=== PATIENT | female | born 1985 | race Caucasian/White ===

== ENCOUNTER 2019-02-06 13:11 | Inpatient (IN) | payer OTHER ==
[~2019-02-06] VITALS: Ht 165.1 cm; Wt 108.9 kg
[2019-02-07] MEDS ORDERED: OXYTOCIN/0.9 % SODIUM CHLORIDE 1,000 ML IV SCH (00:14)
[2019-02-07] MEDS ORDERED: LR 1,000 ML IV ONE (00:14)
[2019-02-07] MEDS ORDERED: LR 500 ML IV ONE ×2 (00:14→06:04)
[2019-02-07] MEDS ORDERED: TERBUTALINE SULFATE 1 MG/ML VIAL SUBCUT ONE (00:15)
[2019-02-07] MEDS ORDERED: NALBUPHINE HCL 10 MG/ML AMP IVP PRN (00:15)
[2019-02-07] MEDS: LR 1,000 ML IV SCH ×2 (00:45→06:59)
[2019-02-07 01:00] VITALS: BP_SYST 120
[2019-02-07 01:15] LABS: WHITE BLOOD COUNT (AUTO) 6.9 K/uL (4.8-10.8)
[2019-02-07 01:16] LABS: HEMATOCRIT 35.4 % (36-48); HEMOGLOBIN 12.3 g/dL (12.0-16.0); MEAN CORPUSCULAR HEMOGLOBIN 29 pg (27-31); MEAN CORPUSCULAR HGB CONC 35 % (32-36); MEAN CORPUSCULAR VOLUME 84 fL (79.0-98.0); MONOCYTES % (AUTO) 7.4 % (1.7-9.3); NEUTROPHILS % (AUTO) 61.8 % (40.0-70.0); PLATELET COUNT (AUTO) 162 K/uL (130-430); RED BLOOD CELL COUNT(AUTO) 4.23 MIL/uL (4.2-6.2); RED CELL DISTRIBUTION WIDTH 13.6 % (9.0-15.0)
[2019-02-07 01:17] LABS: BASOPHILS % (AUTO) 0.3 % (0.0-2.0); EOSINOPHILS # (AUTO) 0.1 K/uL (0.0-0.4); EOSINOPHILS % (AUTO) 1.5 % (0.0-4.0); MONOCYTES # (AUTO) 0.5 K/uL (0.0-1.0); NEUTROPHILS # (AUTO) 4.3 K/uL (1.8-7.7)
[2019-02-07] MEDS ORDERED: OXYTOCIN 10 UNIT/ML VIAL IM ONE ×2 (01:30→19:30)
[2019-02-07] MEDS ORDERED: fentaNYL CITRATE/PF 100 MCG/2 ML AMP ONE ×2 (05:49→13:48)
[2019-02-07] MEDS ORDERED: ROPIVACAINE HCL/PF 0.2% 100 ML ONE ×2 (05:50→13:48)
[2019-02-07] MEDS ORDERED: FENT2mCg/mL-ROPIVA0.2%/NS EPID 100 ML EP SCH (06:15)
[2019-02-07] MEDS ORDERED: OXYTOCIN 10 UNIT/ML VIAL ONE (17:50)
[2019-02-07] MEDS ORDERED: OXYTOCIN/0.9 % SODIUM CHLORIDE 1,000 ML IV ONE (19:18)
[2019-02-07] MEDS ORDERED: WITCH HAZEL LEAF 1 MED.PAD MED.PAD TP PRN (19:30)
[2019-02-07] MEDS ORDERED: DIPH-TET-PERTUS Vaccine 0.5 ML VIAL (ADACEL) I.M. PRN (19:30)
[2019-02-07] MEDS ORDERED: OXYCODONE/ACETAMINOPHEN 5-325 TABLET PO PRN ×2 (19:30)
[2019-02-07] MEDS ORDERED: ANUSOL 1 EA SUPP.RECT (PREPARATION H) RC PRN (19:30)
[2019-02-07] MEDS ORDERED: HYDROcodone/ACETAMIN 5-325 MG TAB (NORCO/ VICODIN) PO PRN (19:30)
[2019-02-07] MEDS ORDERED: LANOLIN 7 GM OINT. TP PRN (19:30)
[2019-02-07] MEDS ORDERED: DERMOPLAST SPRAY TP PRN (19:30)
[2019-02-07] MEDS ORDERED: HYDROCORTISONE 0.5%, 28.35 GM TOPICAL CREAM TP PRN (19:30)
[2019-02-07] MEDS: IBUPROFEN 600 MG TABLET PO SCH (23:01)
[2019-02-08] MEDS: IBUPROFEN 600 MG TABLET PO SCH ×4 (06:01→23:46)
[2019-02-08 07:52] LABS: HEMOGLOBIN 11.8 g/dL (12.0-16.0)
[2019-02-08 07:53] LABS: HEMATOCRIT 35.2 % (36-48)
[2019-02-08] MEDS: DOCUSATE SODIUM 100 MG CAPSULE PO PRN ×2 (09:43→23:46)
[2019-02-09] MEDS: IBUPROFEN 600 MG TABLET PO SCH (05:36)
[2019-02-09] MEDS: DOCUSATE SODIUM 100 MG CAPSULE PO PRN (05:59)
== END 2019-02-09 10:45 | disposition home or self-care (01) | DRG 560 ==
LOC: SPU 02-07 00:01
PROVIDERS: ADMIT Obstetrics & Gynecology; ATTEND Obstetrics & Gynecology
PROC: 10E0XZZ Delivery of Products of Conception, External Approach (ICD-10-PCS; principal; 2019-02-07)
PROC: 3E033VJ Introduction of Other Hormone into Peripheral Vein, Percutaneous Approach (ICD-10-PCS; 2019-02-07)
PROC: 3E0R3BZ Introduction of Anesthetic Agent into Spinal Canal, Percutaneous Approach (ICD-10-PCS; 2019-02-07)
PROC: 00HU33Z Insertion of Infusion Device into Spinal Canal, Percutaneous Approach (ICD-10-PCS; 2019-02-07)
DX: O69.1XX0 Labor and delivery complicated by cord around neck, with compression, not applicable or unspecified (principal); Z37.0 Single live birth; Z3A.39 39 weeks gestation of pregnancy
CPT/HCPCS: 36415; 81002-TC; 85018-TC; 85025; 86592; 86886; 86900; 86901; 90715; J2590; J2795; J3010; J7120